=== PATIENT | female | born 1970 | race American Indian/Alaskan Native ===

== ENCOUNTER 2016-09-30 18:25 | Emergency (ER) | payer SELFPAY ==
[2016-09-30 19:12] LABS: BASO % 0.5 % (0.0-2.0); EOS # 0.2 K/uL (0.0-0.7); EOS % 2.8 % (0.0-4.0); HEMATOCRIT 25.7 % (34.0-47.0); LYMPH # 1.7 K/uL (1.0-4.3); LYMPH % 21.1 % (20.0-40.0); MEAN CELL VOLUME 83.7 fL (81.0-99.0); MEAN CORPUSCULAR HEMOGLOBIN 27.4 pg (27.0-31.0); MEAN CORPUSCULAR HGB CONC 32.7 g/dL (33.0-37.0); MEAN PLATELET VOLUME 8.9 fL (7.2-11.7); MONO # 0.7 K/uL (0.0-0.8); MONO % 8.3 % (0.0-10.0); NRBC % 0.1 % (0.0-2.0); RED CELL DISTRIBUTION WIDTH 14.8 % (11.5-14.5); WHITE BLOOD COUNT 8.2 K/uL (4.8-10.8)
[2016-09-30 19:21] LABS: CHLORIDE 101 mmol/L (98-107); POTASSIUM 3.8 mmol/L (3.6-5.2); SODIUM 139 mmol/L (132-148)
[2016-09-30 19:23] LABS: ALB/GLOB RATIO 1.2 (1.0-2.1); ALKALINE PHOSPHATASE 67 U/L (38-126); AST/SGOT 23 U/L (14-36); BILIRUBIN,TOTAL 0.4 mg/dL (0.2-1.3); CARBON DIOXIDE 28 mmol/L (22-30); GFR AFRICAN-AMERICAN > 60; TOTAL PROTEIN 7.4 g/dL (6.3-8.3)
[2016-09-30 19:24] LABS: ALT/SGPT 19 U/L (9-52); BLOOD UREA NITROGEN 9 mg/dL (7-17); CALCIUM 8.1 mg/dl (8.6-10.4); GLUCOSE,RANDOM 79 mg/dL (65-105)
--- NOTE | 2016-09-30 19:38 | C.PDOC ---
History Of Present Illness The patient, a 45 y/o female, presents to the ED for evaluation after reportedly "feeling unwell" prior to arrival. Patient is unable to further specify her symptoms. She reports she was feeling disoriented, lightheaded, and was having trouble concentrating so she called 911. En route to ED, EMS reports patient's blood pressure was elevated and she began experiencing numbness in her left extremity, which she described as a [id number] sensation. Patient states she lost her job and insurance coverage at the end of August. Patient has been unable to fill Rx for her HTN medication since then. Otherwise she denies fever, chills, headache, vision change, chest pain, nausea, vomiting , lack of coordination, weakness or difficulty moving. Time Seen by Provider: 09/30/16 18:47 Chief Complaint (Nursing): Dizziness/Lightheaded History Per: Patient, EMS History/Exam Limitations: no limitations Onset/Duration Of Symptoms: Hrs Current Symptoms Are (Timing): Still Present Activity At Onset Of Symptoms: Sitting Fall Associated With With Symptoms: No Additional History Per: Patient, EMS Past Medical History Reviewed: Historical Data, Nursing Documentation, Vital Signs Vital Signs: Last Vital Signs Temp 98.1 F 09/30/16 18:36 Pulse 83 09/30/16 18:36 Resp 17 09/30/16 18:36 BP 142/91 H 09/30/16 20:11 Pulse Ox 100 09/30/16 21:24 - Medical History PMH: Bipolar Disorder, HTN, Migraine Surgical History: No Surg Hx Family History: States: Unknown Family Hx - Social History Hx Alcohol Use: No Hx Substance Use: No - Immunization History Hx Tetanus Toxoid Vaccination: No Hx Influenza Vaccination: No Review Of Systems Except As Marked, All Systems Reviewed And Found Negative. Constitutional: Positive for: Other (+elevated blood pressure ). Negative for: Fever, Chills Eyes: Negative for: Vision Change Cardiovascular: Negative for: Chest Pain Gastrointestinal: Negative for: Nausea, Vomiting Neurological: Positive for: Numbness (left extremity ), Other (+lightheaded, feeling disoriented, trouble concentrating ). Negative for: Headache Physical Exam - Physical Exam Appears: Non-toxic, No Acute Distress Skin: Normal Color, Warm, Dry Head: Atraumatic, Normacephalic Eye(s): bilateral: Normal Inspection, PERRL, EOMI Oral Mucosa: Moist Neck: Normal ROM, Supple Chest: Symmetrical, No Deformity, No Tenderness Cardiovascular: Rhythm Regular, No Murmur Respiratory: Normal Breath Sounds, No Rales, No Rhonchi, No Wheezing Gastrointestinal/Abdominal: Soft, No Tenderness, No Guarding, No Rebound Back: Normal Inspection, No Vertebral Tenderness, No Paraspinal Tenderness Extremity: Normal ROM, Capillary Refill (less than 2 seconds ) Neurological/Psych: Oriented x3, Normal Speech, Normal Cognition, Other (no focal deficits ) Gait: Steady ED Course And Treatment - Laboratory Results Result Diagrams: 09/30/16 19:06 09/30/16 19:06 Lab Interpretation: No Acute Changes (moderate anemia) O2 Sat by Pulse Oximetry: 100 (on RA) Pulse Ox Interpretation: Normal - CT Scan/US CT Head Other Rad Studies (CT/US): Read By Radiologist, Radiology Report Reviewed CT/US Interpretation: EXAM: CT Head Without Intravenous Contrast. CLINICAL HISTORY: 45 years old, female; Condition or disease; Headache; Tension; Additional info: R/O bleed. TECHNIQUE: Axial computed tomography images of the head/brain without intravenous contrast. This CT exam. was performed using one or more of the following dose reduction techniques: automated exposure. control, adjustment of the mA and/or kV according to patient size, and/or use of iterative. reconstruction technique. COMPARISON: No relevant prior studies available. FINDINGS: Brain: Periventricular and subcortical hypodensities are nonspecific and could reflect chronic. microvascular ischemic changes. No hemorrhage. Ventricles: Unremarkable. No ventriculomegaly. Bones/joints: Unremarkable. No acute fracture. Soft tissues : Unremarkable. Sinuses: Right sphenoid air fluid levels and aerosolized secretions may reflect acute sinusitis in the. appropriate clinical scenario. Clinical correlation recommended. Left maxillary sinus polyp. Mastoid air cells : Unremarkable as visualized. No mastoid effusion. IMPRESSION: Right sphenoid air fluid levels and aerosolized secretions may reflect acute sinusitis in the. appropriate clinical scenario. Clinical correlation recommended. Progress Note: labs, CT Head ordered and reviewed. Patient received Norvasc PO and Microzide PO. Reevaluation Time: 21:23 Reassessment Condition: Improved (Patient states that she still feels "disoriented" but appears in no distress. She is alert and oriented on exam.) Disposition - Disposition Referrals: [facility] [Outside] Disposition: HOME/ ROUTINE Disposition Time: 21:24 Condition: IMPROVED Additional Instructions: Follow up with child welfare social worker for financial assistance. Prescriptions: amLODIPine [Norvasc] 10 mg PO DAILY #30 tab hydroCHLOROthiazide [Hydrodiuril] 25 mg PO DAILY #30 tab Instructions: Hypertension (ED) - Clinical Impression Clinical Impression: Hypertension - Scribe Statement The provider has reviewed the documentation as recorded by the Scribe (Heike Leroy) Provider Attestation: All medical record entries made by the Scribe were at my direction and personally dictated by me. I have reviewed the chart and agree that the record accurately reflects my personal performance of the history, physical exam, medical decision making, and the department course for this patient. I have also personally directed, reviewed, and agree with the discharge instructions and disposition.
[2016-09-30 21:26] LABS: RBC URINE 147 /hpf (0-3); URINE BACTERIA RARE (<OCC); URINE BILIRUBIN 1+ (NEGATIVE); URINE BLOOD 2+ (NEGATIVE); URINE COLOR Yellow (YELLOW); URINE GLUCOSE (UA) NORMAL (Normal); URINE KETONE TRACE mg/dL (NEGATIVE); URINE LEUKOCYTE ESTERASE NEG Leu/uL (Negative); URINE PROTEIN NEGATIVE (NEGATIVE); URINE UROBILINOGEN NORMAL mg/dL (0.2-1.0); WBC URINE 1 /hpf (0-5)
[2016-09-30] MEDS ORDERED: Apap-Butalbital-Caffeine 325-50-40mg Tab ONE (21:59)
[2016-09-30] MEDS ORDERED: Apap-Butalbital-Caffeine 325-50-40mg Tab PO STA (22:00)
[2016-09-30 22:09] VITALS: BP 143/86; PULSE 80; RESP 16; TEMP 98; O2SAT 98
--- NOTE | 2016-10-01 09:32 | CT ---
PROCEDURE: CT HEAD WITHOUT CONTRAST. HISTORY: R/O Bleed COMPARISON: None available. TECHNIQUE: Axial computed tomography images were obtained through the head/brain without intravenous contrast. Radiation dose: Total exam DLP = 998 mGy-cm. This CT exam was performed using one or more of the following dose reduction techniques: Automated exposure control, adjustment of the mA and/or kV according to patient size, and/or use of iterative reconstruction technique. FINDINGS: HEMORRHAGE: No intracranial hemorrhage. BRAIN: No mass effect or edema. Scattered focal lucencies in the subcortical and periventricular white matter suggestive for chronic microvascular ischemic change. Bilateral basal ganglia calcifications. Focal hypodensity in the right frontal subcortical white matter which may represent chronic microvascular ischemic change. VENTRICLES: Unremarkable. No hydrocephalus. CALVARIUM: Unremarkable. PARANASAL SINUSES: Right sphenoid sinus air-fluid levels with secretions which may reflect acute sinusitis in the appropriate clinical scenario. Mucosal thickening and opacification of the ethmoid air cells. Clinical correlation. Left maxillary sinus polyp. MASTOID AIR CELLS: Unremarkable as visualized. No inflammatory changes. OTHER FINDINGS: None. IMPRESSION: Chronic microvascular ischemic change. Right sphenoid sinus with air-fluid levels and secretions which may reflect acute sinusitis in the appropriate clinical setting. Mucosal opacification of the ethmoid air cells. Clinical correlation. If focal neurologic deficit persists, consider MRI. These findings were preliminarily reported at 7:35 p.[address]. on 09/30/[address] Kevin Freitas from [facility].
== END 2016-09-30 22:09 | disposition home or self-care (01) ==
LOC: C.ER 18:25
DX: I10 Essential (primary) hypertension (principal)